=== PATIENT | female | born 1965 | race Caucasian/White ===

== ENCOUNTER 2018-04-21 06:57 | Day surgery (SDC) | payer BC ==
[2018-04-21] MEDS ORDERED: LIDOCAINE 100 MG SYRINGE (09:23)
[2018-04-21] MEDS ORDERED: PROPOFOL 40 ML (09:23)
== END 2018-04-21 14:35 | disposition home or self-care (01) ==
LOC: GIL 06:57
DX: Z12.11 Encounter for screening for malignant neoplasm of colon (principal); K62.1 Rectal polyp; K57.31 Diverticulosis of large intestine without perforation or abscess with bleeding; E66.9 Obesity, unspecified; Z68.38 Body mass index [BMI] 38.0-38.9, adult
CPT/HCPCS: 45380; 88305